=== PATIENT | female | born 1935 | race African-American/Black ===

== ENCOUNTER 2018-09-20 16:30 | Emergency (ER) | payer OTHER ==
[2018-09-20 17:20] LABS: Protime INR 1.02
[2018-09-20 17:36] LABS: ALT/SGPT 34 U/L (12-78); AST/SGOT 37 U/L (15-37); Albumin 3.8 g/dL (3.4-5.0); Alkaline Phosphatase 77 U/L (45-117); BUN Blood Urea Nitrogen 10 mg/dL (7-18); Bicarbonate 30 mmol/L (21-32); Bilirubin Direct 0.3 mg/dL (0-0.2); Bilirubin Total 0.9 mg/dL (0.2-1.0); Glucose Level 98 mg/dL (74-106); Magnesium 1.8 mg/dL (1.8-2.4); NT PRO-BNP 334 pg/mL (<450); Potassium 3.4 mmol/L (3.5-5.1); Protein, Total 7.3 g/dL (6.4-8.2); Sodium Level 135 mmol/L (136-145); Troponin (Emerg Dept Use Only) < 0.02 ng/mL (0.0-0.045)
[2018-09-20 17:37] LABS: Absolute Lymphocytes (CBC) 0.6 K/uL (0.7-4.9); Absolute Neutrophil 6.6 K/uL (1.8-8.0); Basophils % 0.4 % (0-1.3); Eosinophils % 0.7 % (0-4.4); Hematocrit 39.2 % (36.0-45.0); Lymphocytes % 7.6 % (15.3-44.8); MPV 8.9 fL (7.6-11.3); Monocytes % 11.9 % (3.3-12.3); RBC Red Blood Cell Count 5.31 M/uL (3.86-4.86)
--- NOTE | 2018-09-20 17:38 | RAD REPORT ---
EXAM DESCRIPTION: CT - Head C Spine Mpr Wo Con - 09/20/2018 5:11 pm CLINICAL HISTORY: Head and neck injury status post fall. Head and neck pain COMPARISON: None. TECHNIQUE: Computed axial tomography of the head and cervical spine was obtained. Sagittal and coronal reconstruction was performed. All CT scans are performed using dose optimization technique as appropriate and may include automated exposure control or mA/KV adjustment according to patient size. FINDINGS: Left parietal scalp swelling without an underlying skull fracture An intracranial bleed is not seen. The ventricles are normal in caliber. Mild to moderate low-density areas within periventricular, deep and subcortical white matter likely secondary to ischemic changes secondary to small vessel disease. An extra-axial fluid collection is not noted.Fluid is present within the right maxillary sinus A cervical fracture is not visualized. No dislocation is noted. IMPRESSION: No acute intracranial abnormality is seen. A cervical fracture is not visualized. If the patient continues to have symptoms to suggest intracra nial /spinal cord pathology then MRI would be recommended Fluid within the right maxillary sinus may be secondary to acute sinusitis
--- NOTE | 2018-09-20 17:40 | RAD REPORT ---
EXAM DESCRIPTION: Eddie Single View09/20/2018 5:29 pm CLINICAL HISTORY: Chest pain COMPARISON: 2017 FINDINGS: The lungs appear clear of acute infiltrate. The heart is normal size IMPRESSION: No acute abnormalities displayed
--- NOTE | 2018-09-20 18:57 | EDPHYS ---
Physician Documentation [facility] Name: Sneha Kidd Age: 83 yrs Sex: Female : 1935 Arrival Date: 09/20/2018 Time: 16:34 Bed 8 Private MD: Jose Ambrose H ED Physician Chepe Gatica HPI: 09/20 18:49 This 83 yrs old Black Female presents to ER via Ambulatory with complaints of Fall kdr Injury, Passed Out Prior To Arrival. 18:49 Details of fall: The patient fell from seated position, bar stool. Onset: The kdr symptoms/episode began/occurred acutely, suddenly, just prior to arrival. Associated injuries: The patient sustained injury to the head, abrasion, contusion, laceration, pain, swelling, tenderness. Severity of symptoms: At their worst the symptoms were mild, in the emergency department the symptoms have improved, mildly. The patient has experienced a previous episode, The patient was sitting on a bar chair when she started to feel ill. The next thing she knows she is on the floor. Her was on the other side of the bar when she fell though he did not see her go down. He responded immediately to her fall. When he was able to get around the bar, she was talking but seemed slightly confused. She otherwise did not have any other s/s. The patient has not recently seen a physician. Historical: - Allergies: 16:52 Sulfa (Sulfonamide Antibiotics); sg 16:52 Clonidine; sg - PMHx: 16:47 Hypertension; Hypothyroidism; sg - PSHx: 16:47 Knee surgery; Cholecystectomy; Hysterectomy; sg - Immunization history: Last tetanus immunization:. - Social history:: Smoking status: Patient/guardian denies using tobacco. - Ebola Screening: : Patient denies travel to an Ebola-affected area in the 21 days before illness onset. ROS: 18:49 Constitutional: Negative for fever, chills, and weight loss, Eyes: Negative for injury, kdr pain, redness, and discharge, ENT: Negative for injury, pain, and discharge, Neck: Negative for injury, pain, and swelling, Cardiovascular: Negative for chest pain, palpitations, and edema, Respiratory: Negative for shortness of breath, cough, wheezing, and pleuritic chest pain, Abdomen/GI: Negative for abdominal pain, nausea, vomiting, diarrhea, and constipation, Back: Negative for injury and pain, : Negative for injury, bleeding, discharge, and swelling, MS/Extremity: Negative for injury and deformity, Skin: Negative for injury, rash, and discoloration, Psych: Negative for depression, anxiety, suicide ideation, homicidal ideation, and hallucinations, Allergy/Immunology: Negative for hives, rash, and allergies, Endocrine: Negative for neck swelling, polydipsia, polyuria, polyphagia, and marked weight changes, Hematologic/Lymphatic: Negative for swollen nodes, abnormal bleeding, and unusual bruising. 18:49 Neuro: Positive for headache, syncope. Exam: 18:49 Constitutional: This is a well developed, well nourished patient who is awake, alert, kdr and in no acute distress. Eyes: Pupils equal round and reactive to light, extra-ocular motions intact. Lids and lashes normal. Conjunctiva and sclera are non-icteric and not injected. Cornea within normal limits. Periorbital areas with no swelling, redness, or edema. Neck: Trachea midline, no thyromegaly or masses palpated, and no cervical lymphadenopathy. Supple, full range of motion without nuchal rigidity, or vertebral point tenderness. No Meningismus. Chest/axilla: Normal chest wall appearance and motion. Nontender with no deformity. No lesions are appreciated. Cardiovascular: Regular rate and rhythm with a normal S1 and S2. No gallops, murmurs, or rubs. Normal PMI, no JVD. No pulse deficits. Respiratory: Lungs have equal breath sounds bilaterally, clear to auscultation and percussion. No rales, rhonchi or wheezes noted. No increased work of breathing, no retractions or nasal flaring. Abdomen/GI: Soft, non-tender, with normal bowel sounds. No distension or tympany. No guarding or rebound. No evidence of tenderness throughout. Back: No spinal tenderness. No costovertebral tenderness. Full range of motion. Skin: Warm, dry with normal turgor. Normal color with no rashes, no lesions, and no evidence of cellulitis. MS/ Extremity: Pulses equal, no cyanosis. Neurovascular intact. Full, normal range of motion. Neuro: Awake and alert, GCS 15, oriented to person, place, time, and situation. Cranial nerves II-XII grossly intact. Motor strength 5/5 in all extremities. Sensory grossly intact. Cerebellar exam normal. Normal gait. Psych: Awake, alert, with orientation to person, place and time. Behavior, mood, and affect are within normal limits. 18:49 Head/face: Noted is a laceration(s), that is superficial, that is linear, of the left occipital area and right occipital area. Vital Signs: 16:50 BP 161 / 80; Pulse 66; Resp 18; Pulse Ox 100% on R/A; aj1 17:50 BP 177 / 82; Pulse 65; Resp 16; Pulse Ox 100% ; aj1 18:50 BP 190 / 73; Pulse 61; Resp 18; Pulse Ox 100% on R/A; aj1 19:15 BP 175 / 65; Pulse 64; Resp 14; Temp 98.2(O); Pulse Ox 99% on R/A; Pain 0/10; tl1 [place] Coma Score: 16:50 Eye Response: spontaneous(4). Verbal Response: oriented(5). Motor Response: obeys aj1 commands(6). Total: 15. 19:15 Eye Response: spontaneous(4). Verbal Response: oriented(5). Motor Response: obeys tl1 commands(6). Total: 15. Trauma Score (Adult): 16:50 Eye Response: spontaneous(1); Verbal Response: oriented(1); Motor Response: obeys aj1 commands(2); Systolic BP: > 89 mm Hg(4); Respiratory Rate: 10 to 29 per min(4); [place] Score: 15; Trauma Score: 12 17:50 Eye Response: spontaneous(1); Verbal Response: oriented(1); Motor Response: obeys aj1 commands(2); Systolic BP: > 89 mm Hg(4); Respiratory Rate: 10 to 29 per min(4); [place] Score: 15; Trauma Score: 12 18:50 Eye Response: spontaneous(1); Verbal Response: oriented(1); Motor Response: obeys aj1 commands(2); Systolic BP: > 89 mm Hg(4); Respiratory Rate: 10 to 29 per min(4); [place] Score: 15; Trauma Score: 12 19:15 Eye Response: spontaneous(1); Verbal Response: oriented(1); Motor Response: obeys tl1 commands(2); Systolic BP: > 89 mm Hg(4); Respiratory Rate: 10 to 29 per min(4); [place] Score: 15; Trauma Score: 12 MDM: 18:49 Data reviewed: vital signs, nurses notes, lab test result(s), EKG, radiologic studies. kdr Counseling: I had a detailed discussion with the patient and/or guardian regarding: the historical points, exam findings, and any diagnostic results supporting the discharge/admit diagnosis, lab results, radiology results, the need for outpatient follow up. 18:57 Patient medically screened. [facility] 09/20 16:53 Order name: Basic Metabolic Panel; Complete Time: 18:27 [facility] 09/20 16:53 Order name: CBC with Diff; Complete Time: 18:27 [facility] 09/20 16:53 Order name: LFT's; Complete Time: 18:27 [facility] 09/20 16:53 Order name: Magnesium; Complete Time: 18:27 [facility] 09/20 16:53 Order name: NT PRO-BNP; Complete Time: 18:27 [facility] 09/20 16:53 Order name: PT-INR; Complete Time: 18:27 [facility] 09/20 16:53 Order name: XRAY Chest (1 view); Complete Time: 18:27 [facility] 09/20 16:53 Order name: Troponin (emerg Dept Use Only); Complete Time: 18:27 [facility] 09/20 16:53 Order name: EKG; Complete Time: 16:54 [facility] 09/20 16:53 Order name: Cardiac monitoring; Complete Time: 17:53 [facility] 09/20 16:53 Order name: EKG - Nurse/Tech; Complete Time: 17:55 [facility] 09/20 16:53 Order name: IV Saline Lock; Complete Time: 17:01 09/20 17:06 Order name: CT Head C Spine; Complete Time: 18:27 [facility] 09/20 17:06 Order name: US Extremity Venous Unilateral Ltd [facility] 09/20 16:53 Order name: Labs collected and sent; Complete Time: 17:01 [facility] 09/20 16:53 Order name: O2 Per Protocol; Complete Time: 17:53 [facility] 09/20 16:53 Order name: O2 Sat Monitoring; Complete Time: 17:53 1 Administered Medications: No medications were administered Disposition: 09/20/18 18:57 Discharged to Home. Impression: Syncope and collapse, Superficial injury of head, Occupital scalp abrasion. - Condition is Stable. - Discharge Instructions: Cellulitis, Adult, Ogej-jy-Qezc, Abrasion, Ngaz-tx-Lple, Syncope, Syiz-da-Pkyf, Cough, Adult, Kmvg-ke-Ewrn, Head Injury, Adult, Nvjs-ht-Qgwb, Facial or Scalp Contusion, Mpky-vb-Ejrt. - Prescriptions for Mucinex DM 30- 600 mg Oral tablet extended release 12 hr - take 1 tablet by ORAL route every 12 hours as needed; 20 tablet. Keflex 500 mg Oral Capsule - take 1 capsule by ORAL route every 8 hours for 10 days; 30 capsule. Tessalon Perles 100 mg Oral Capsule - take 1 capsule by ORAL route every 8 hours As needed; 15 capsule. - Medication Reconciliation Form, Thank You Letter form. - Follow up: Jose Ambrose DO; When: 2 - 3 days; Reason: If symptoms return, Further diagnostic work-up, Recheck today's complaints, Continuance of care, Re-evaluation by your physician. - Problem is new. - Symptoms have improved. Signatures: Dispatcher [employer] EDMS Dania Mesa RN RN aj1 Zackary Guthrie RN RN Chepe Gatica MD MD [facility] Arianne Gonzalez RN RN tl1 Corrections: (The following items were deleted from the chart) 16:52 16:47 Allergies: No Known Allergies; [facility] 19:41 18:57 09/20/2018 18:57 Discharged to Home. Impression: Syncope and collapse; tl1 Superficial injury of head; Occupital scalp abrasion. Condition is Stable. Forms are Medication Reconciliation Form, Thank You Letter, Antibiotic Education, Prescription Opioid Use. Follow up: Jose Ambrose; When: 2 - 3 days; Reason: If symptoms return, Further diagnostic work-up, Recheck today's complaints, Continuance of care, Re-evaluation by your physician. Problem is new. Symptoms have improved. kdr
--- NOTE | 2018-09-20 18:57 | ER ---
Nurse's Notes [facility] Name: Sneha Kidd Age: 83 yrs Sex: Female : 1935 Arrival Date: 09/20/2018 Time: 16:34 Bed 8 Private MD: Jose Ambrose H Diagnosis: Syncope and collapse;Superficial injury of head;Occupital scalp abrasion Presentation: 09/20 16:45 Presenting complaint: Patient states: I dont really remember what happened I just was sg walking and then I woke up on the floor, I have a gash on my head that was bleeding, and my right knee hurts, it was hurting before i fell but it hurts worse now after the fall. Care prior to arrival: None. Mechanism of Injury: Fall from standing position. Trauma event details: Injury occurred in the [facility], Injury occurred: at home. Injury occurred: September 20, 2018. 16:45 Acuity: KEELY 3 sg 16:45 Method Of Arrival: Ambulatory sg 18:32 Transition of care: patient was not received from another setting of care. Onset of aj1 symptoms was September 20, 2018. Risk Assessment: Do you want to hurt yourself or someone else? Patient reports no desire to harm self or others. 19:01 Initial Sepsis Screen: Does the patient meet any 2 criteria? No. Patient's initial aj1 sepsis screen is negative. Does the patient have a suspected source of infection? No. Patient's initial sepsis screen is negative. Triage Assessment: 16:48 General: Appears in no apparent distress. comfortable, well groomed, well developed, sg well nourished, Behavior is calm, cooperative, appropriate for age. Pain: Complains of pain in right parietal area and right knee Quality of pain is described as tender, throbbing. Neuro: Level of Consciousness is awake, alert, obeys commands, Oriented to person, place, time, situation. Derm: Skin is pink, warm \T\ dry. Musculoskeletal: Circulation, motion, and sensation intact. Range of motion: intact in all extremities, Swelling present in right parietal area. Injury Description: Head injury sustained to right parietal area bleeding, was sustained 30-60 minutes ago. Laceration sustained to right parietal area. Trauma Activation: Alert Physician: ED Physician; Name: ; Notified At: ; Arrived At: Physician: General Surgeon; Name: ; Notified At: ; Arrived At: Physician: Radiology; Name: ; Notified At: ; Arrived At: Physician: Respiratory; Name: ; Notified At: ; Arrived At: Physician: Lab; Name: ; Notified At: ; Arrived At: Historical: - Allergies: 16:52 Sulfa (Sulfonamide Antibiotics); sg 16:52 Clonidine; sg - PMHx: 16:47 Hypertension; Hypothyroidism; sg - PSHx: 16:47 Knee surgery; Cholecystectomy; Hysterectomy; sg - Immunization history: Last tetanus immunization:. - Social history:: Smoking status: Patient/guardian denies using tobacco. - Ebola Screening: : Patient denies travel to an Ebola-affected area in the 21 days before illness onset. Screenin:50 Abuse screen: Denies threats or abuse. Denies injuries from another. Tuberculosis aj1 screening: No symptoms or risk factors identified. 19:03 Nutritional screening: No deficits noted. aj1 19:35 Fall Risk Fall in past 12 months (25 points). IV access (20 points). tl1 Primary Survey: 16:50 NO uncontrolled hemorrhage observed. A: The patient is alert. Airway: patent. aj1 Breathing/Chest: Respiratory pattern: regular, Respiratory effort: spontaneous, unlabored, Chest inspection: symmetrical rise and fall of the chest. Circulation: Skin color: pink. Disability Alert. Exposure/Environment: There is no evidence of uncontrolled external bleeding. 17:50 Reassessment Airway Airway Patent Breathing/Chest Respiratory pattern Regular aj1 Respiratory effort Spontaneous Unlabored Circulation Color [place] Disability Alert. Secondary Survey: 16:50 HEENT: Head Other laceration noted to the back of head, bleeding lightly. aj1 Gastrointestinal: Abdomen is soft, Patient reports Nausea. : No deficits noted. No signs and/or symptoms were reported regarding the genitourinary system. Musculoskeletal: No deficits noted. No signs and/or symptoms reported regarding the musculoskeletal system. Assessment: 16:50 General: Appears in no apparent distress. comfortable, Behavior is calm, cooperative, aj1 appropriate for age. Pain: Complains of pain in back of head Pain does not radiate. Pain currently is 5 out of 10 on a pain scale. Quality of pain is described as aching. Neuro: Level of Consciousness is awake, alert, obeys commands, Oriented to person, place, time, situation, Moves all extremities. Full function Speech is normal, Facial symmetry appears normal, Reports a syncopal episode Denies weakness blurred vision dizziness. EENT: No signs and/or symptoms were reported regarding the EENT system. Cardiovascular: Denies chest pain, lightheadedness, palpitations, shortness of breath, Heart tones S1 S2 present Patient's skin is warm and dry. Rhythm is regular. Respiratory: Airway is patent Respiratory effort is even, unlabored, Respiratory pattern is regular, symmetrical, Breath sounds are clear bilaterally. GI: Reports nausea, Patient currently denies diarrhea, vomiting. : No signs and/or symptoms were reported regarding the genitourinary system. Derm: No signs and/or symptoms reported regarding the dermatologic system. Skin is normal. Musculoskeletal: No signs and/or symptoms reported regarding the musculoskeletal system. Circulation, motion, and sensation intact. 17:50 Reassessment: Patient appears in no apparent distress at this time. No changes from aj1 previously documented assessment. Patient and/or family updated on plan of care and expected duration. Pain level reassessed. Patient is alert, oriented x 3, equal unlabored respirations, skin warm/dry/pink. 18:33 Reassessment: Patient appears in no apparent distress at this time. No changes from aj1 previously documented assessment. Patient and/or family updated on plan of care and expected duration. Pain level reassessed. Patient is alert, oriented x 3, equal unlabored respirations, skin warm/dry/pink. Vital Signs: 16:50 BP 161 / 80; Pulse 66; Resp 18; Pulse Ox 100% on R/A; aj1 17:50 BP 177 / 82; Pulse 65; Resp 16; Pulse Ox 100% ; aj1 18:50 BP 190 / 73; Pulse 61; Resp 18; Pulse Ox 100% on R/A; aj1 19:15 BP 175 / 65; Pulse 64; Resp 14; Temp 98.2(O); Pulse Ox 99% on R/A; Pain 0/10; tl1 [place] Coma Score: 16:50 Eye Response: spontaneous(4). Verbal Response: oriented(5). Motor Response: obeys aj1 commands(6). Total: 15. 19:15 Eye Response: spontaneous(4). Verbal Response: oriented(5). Motor Response: obeys tl1 commands(6). Total: 15. Trauma Score (Adult): 16:50 Eye Response: spontaneous(1); Verbal Response: oriented(1); Motor Response: obeys aj1 commands(2); Systolic BP: > 89 mm Hg(4); Respiratory Rate: 10 to 29 per min(4); [place] Score: 15; Trauma Score: 12 17:50 Eye Response: spontaneous(1); Verbal Response: oriented(1); Motor Response: obeys aj1 commands(2); Systolic BP: > 89 mm Hg(4); Respiratory Rate: 10 to 29 per min(4); [place] Score: 15; Trauma Score: 12 18:50 Eye Response: spontaneous(1); Verbal Response: oriented(1); Motor Response: obeys aj1 commands(2); Systolic BP: > 89 mm Hg(4); Respiratory Rate: 10 to 29 per min(4); [place] Score: 15; Trauma Score: 12 19:15 Eye Response: spontaneous(1); Verbal Response: oriented(1); Motor Response: obeys tl1 commands(2); Systolic BP: > 89 mm Hg(4); Respiratory Rate: 10 to 29 per min(4); [place] Score: 15; Trauma Score: 12 ED Course: 16:34 Patient arrived in ED. mr 16:34 Jose Ambrose DO is Private Physician. mr 16:47 Triage completed. sg 16:48 Arm band placed on. sg 16:50 Patient has correct armband on for positive identification. aj1 16:50 Patient maintains SpO2 saturation greater than 95% on room air. aj1 16:52 Dania Mesa, ALEX is Primary Nurse. aj1 16:54 Chepe Gatica MD is Attending Physician. kdr 17:00 Thermoregulation: warm blanket given to patient. aj1 17:02 Inserted saline lock: 20 gauge in right antecubital area, using aseptic technique. kj1 17:02 Initial lab(s) drawn, by me, sent to lab. kj1 17:[address] via stretcher. nj 17:08 CT completed. Patient tolerated procedure well. Patient moved back from CT. nj 17:11 CT Head C Spine In Process Unspecified. EDMS 17:27 XRAY Chest (1 view) In Process Unspecified. EDMS 18:45 Wound care: to laceration located on back of head was cleaned with Hibiclens, Patient aj1 tolerated well. 18:47 US Extremity Venous Unilateral Ltd In Process Unspecified. EDMS 18:48 Ultrasound completed. Patient tolerated well. Notified ED Physician bhargavi. sg3 18:56 Halie StephanieHarisHarry, DO is Referral Physician. kdr 19:02 No provider procedures requiring assistance completed. aj1 19:33 IV discontinued, intact, bleeding controlled, No redness/swelling at site. Pressure tl1 dressing applied. 19:34 Wound care: was dressed with Neosporin. tl1 Administered Medications: No medications were administered Intake: 19:37 PO: 0ml; IV: 0ml; Total: 0ml. tl1 Outcome: 18:57 Discharge ordered by . kdr 19:34 Discharged to home via wheelchair, with family. tl1 19:34 Condition: good 19:34 Discharge instructions given to patient, family, Instructed on discharge instructions, follow up and referral plans. medication usage, Demonstrated understanding of instructions, follow-up care, medications, wound care, Prescriptions given X 3. 19:37 Patient's length of stay in the Emergency Department was greater than 2 hours. test tl1 resultsPatient's length of stay extended due to 19:41 Patient left the ED. tl1 Signatures: Dispatcher [employer] EDMS Dania Mesa RN RN aj1 Zackary Guthrie RN RN sg Chepe Gatica MD MD kdr Cole, Sneha GonzalezArianne RN RN tl1 Bo Bernabe Sarah sg3 Bhavana Payan kj1 Corrections: (The following items were deleted from the chart) 16:52 16:47 Allergies: No Known Allergies; sg sg 18:33 18:24 General: Appears aj1 aj1
--- NOTE | 2018-09-20 19:11 | RAD REPORT ---
EXAM DESCRIPTION: USExtkaiser Venous Uni Ltd09/20/2018 6:47 pm CLINICAL HISTORY: Right leg swelling. COMPARISON: None. FINDINGS: Right common femoral, superficial femoral, popliteal and right posterior tibial veins are compressible and demonstrate augmentation. Doppler demonstrates good flow. IMPRESSION: No evidence of deep venous thrombosis involving the right lower extremity.
--- NOTE | 2018-09-21 09:45 | EKG ---
Test Date: 2018-09-20 Test Time: 16:45:35 Steamf[employer] Supervisor: DANIELLE MEASUREMENT RESULTS: Intervals: Rate: 70 MA: 158 QRSD: 80 QT: 396 QTc: 427 Sims: P: 21 MA: 158 QRS: 24 T: 31 INTERPRETIVE STATEMENTS: Normal sinus rhythm Normal ECG Compared to ECG 10/06/2005 14:25:38 Sinus bradycardia no longer present Electronically Signed On 09-21-18 09:43:03 CDT by Yvon Vieira
== END 2018-09-20 19:41 | disposition home or self-care (01) ==
LOC: ER 16:30
DX: S00.01XA Abrasion of scalp, initial encounter (principal); S00.90XA Unspecified superficial injury of unspecified part of head, initial encounter; W19.XXXA Unspecified fall, initial encounter; Y93.9 Activity, unspecified; Y92.89 Other specified places as the place of occurrence of the external cause; Z88.2 Allergy status to sulfonamides; Z88.8 Allergy status to other drugs, medicaments and biological substances; I10 Essential (primary) hypertension
CPT/HCPCS: 36415; 70450; 71045; 72125; 80048; 80076; 83735; 83880; 84484; 85025; 85610; 93005; 93971; 99285

== ENCOUNTER 2020-04-26 09:35 | Day surgery (SDC) | payer OTHER ==
[2020-04-21 16:55] LABS: Absolute Lymphocytes (CBC) 1.2 K/uL (0.7-4.9); Basophils % 0.5 % (0-1.3); Hematocrit 35.1 % (36.0-45.0); Lymphocytes % 21.2 % (15.3-44.8); MPV 8.8 fL (7.6-11.3)
[2020-04-21 17:06] LABS: Potassium 3.6 mmol/L (3.5-5.1)
--- NOTE | 2020-04-21 17:15 | RAD REPORT ---
EXAM DESCRIPTION: RAD - Chest Pa And Lat (2 Views) - 04/21/2020 4:59 pm CLINICAL HISTORY: PRE OP, patient pending umbilical hernia repair COMPARISON: AP chest September 2018 TECHNIQUE: Frontal and lateral views of the chest were obtained. FINDINGS: The lungs are clear. Interstitial pattern matches comparison. Heart size is normal and ce ntral vasculature is within normal limits. No pleural effusion or pneumothorax seen. No acute bony finding noted. No aortic abnormality. Small to moderate size hiatal hernia is present similar to co mparison. IMPRESSION: No acute cardiopulmonary process. Chest findings are similar to the comparison.
[2020-04-26] MEDS ORDERED: Ringers Lactate 1,000 ML IV ONE (10:19)
[2020-04-26] MEDS ORDERED: CEFAZOLIN/SWI 1gm 1 GM/10 ML SYR ONE (10:20)
[2020-04-26] MEDS ORDERED: MIDAZOLAM HCL 2 MG/2 ML INJ ONE (11:01)
[2020-04-26] MEDS ORDERED: dexAMETHasone 10 MG/ML VIAL ONE (11:01)
[2020-04-26] MEDS ORDERED: propofoL 200 MG/20 ML VIAL IV ONE (11:01)
[2020-04-26] MEDS ORDERED: FENTANYL CITR 100 MCG/2 ML ONE (11:01)
[2020-04-26] MEDS ORDERED: LIDOCAINE 2% MPF 5 ML VIAL ONE (11:02)
[2020-04-26] MEDS ORDERED: ROCURONIUM 50 MG/5 ML VIAL IV ONE (11:03)
[2020-04-26] MEDS ORDERED: GLYCOPYRROLATE 0.2 MG/ML SYR ONE ×2 (11:29→12:00)
[2020-04-26] MEDS ORDERED: ONDANSETRON 4 MG/2 ML VIAL ONE ×2 (11:40→12:45)
[2020-04-26] MEDS ORDERED: NEOSTIGMINE 1 MG/ML -5 ML ONE (12:00)
[2020-04-26] MEDS ORDERED: KETOROLAC 30 MG/ML INJ ONE (12:00)
--- NOTE | 2020-04-26 12:31 | OP ---
Date of Procedure: 04/26/2020 Surgeon: Ramon Morley MD Ad Terminal Makeup Operator: LORRAINE Silva. Preoperative Diagnosis: Incarcerated umbilical hernia. Postoperative Diagnosis: Incarcerated umbilical hernia with adhesions. Procedure Performed: Laparoscopic repair of incarcerated umbilical hernia and lysis of adhesions. Estimated Blood Loss: Minimal. Specimen: Hernia sac. Findings: As above. Anesthesia: General. Complications: None. Disposition: The patient tolerated the procedure in stable condition, taken to Recovery in good gene ral condition. Procedure In Detail: The patient was brought to the OR and placed in supine position. General anest hesia begun. The patient was prepped and draped in the usual sterile fashion. Marcaine 0.5% was inf iltrated locally. A 15-blade was used to make a 1 cm left upper quadrant incision. Subcutaneous tis sues were divided. Fascia was identified and divided. A #1 Vicryl stay suture was placed. Peritone al cavity was entered with sharp and blunt dissection. A 12 mm trocar was placed into the peritoneal cavity under direct vision. Pneumoperitoneum was established and then a 5 mm trocar was placed in t he left lower quadrant. Laparoscopy revealed incarcerated omentum into hernias and just above the um bilicus. Then, sharp and blunt dissection utilized with LigaSure. There were extensive adhesions in the lower midline, which had to be taken down for create a room to place the mesh and this was done all the way down to the pelvis. There was no active bleeding or bowel injury appreciated in approxim ately 10-15 minutes. We utilized to lyse all these adhesions. Then, the omentum and the hernia sac were reduced to the peritoneal cavity. Then, a 3 cm incision was made over the hernia and subcutaneo us tissue was divided. Hernia sac was identified, excised, and sent to the pathology as specimen. A 3 cm defect remained and this was closed with a running #1 Vicryl suture because the patient's fasci a was very thin and subsequently pneumoperitoneum was reestablished and then the oval small Bard and Marlex mesh component balloon device was deployed in the usual standard fashion and secured with Abso rbaTack stapler to complete coverage of the hernia defect site. No evidence of bowel injury or bleed ing noted. Subsequently, all trocars were removed under direct vision. Stay sutures were tied to ea ch other to reapproximate the fascial defect. Subcutaneous wounds were irrigated. Bleeding was cont rolled with cautery. A 0 chromic was used for subcutaneous tissue and close the skin. Sterile dress ing was applied. The patient was awakened and taken to Recovery in good general condition. Discharge Note: The patient will go to Day Surgery and home when stable. Disposition: Home. Condition: Stable. Discharge Instructions: Resume home medications and diet. Activity as tolerated. No heavy lifting. Remove outer dressing in 2 days. Shower. Keep Steri-Strips on at all times. Abdominal binder as ordered. Incentive spirometry as ordered. Tylenol No.3 one tablet p.o. q.4 p.r.n. pain. Follow up in my office in 2 weeks. Call for appointment. EUGENE/MARIE Voice ID: [id number] Report ID: [id number]
[2020-04-26] MEDS: HYDROMORPHONE HCL 1 MG/ML INJ ONE ×2 (12:35→12:40)
[2020-04-26] MEDS ORDERED: HYDROCODONE/APAP 7.5/325 MG TAB PO ONE (13:17)
[2020-04-26] MEDS ORDERED: HYDROCODONE/APAP 7.5/325 MG TAB ONE (13:29)
[2020-04-26 14:08] VITALS: BP 161/75; TEMP 97.4; O2SAT 96
== END 2020-04-26 14:00 | disposition home health service (06) ==
LOC: OR 09:35
PROVIDERS: ATTEND Surgery
PROC: 0DNW4ZZ Release Peritoneum, Percutaneous Endoscopic Approach (ICD-10-PCS; 2020-04-26)
PROC: 0WUF4JZ Supplement Abdominal Wall with Synthetic Substitute, Percutaneous Endoscopic Approach (ICD-10-PCS; principal; 2020-04-26 11:45)
DX: K42.0 Umbilical hernia with obstruction, without gangrene (principal); K66.0 Peritoneal adhesions (postprocedural) (postinfection); I10 Essential (primary) hypertension; E07.9 Disorder of thyroid, unspecified; Z88.2 Allergy status to sulfonamides; Z20.828 Contact with and (suspected) exposure to other viral communicable diseases
CPT/HCPCS: 85025; 80048; 36415; 88302; 71046; 49653; 49329; U0002; J2704; J3010; J1100; J1170; J2710; J0690; J7120; J2405 ×2; J2250

== ENCOUNTER 2023-08-15 14:33 | Day surgery (SDC) | payer OTHER ==
[2023-08-15] MEDS ORDERED: CEFEPIME 1 GM/VIAL ONE (14:37)
[2023-08-15] MEDS ORDERED: NA CHLORIDE 0.9% 100 ML ONE (14:38)
[2023-08-15 15:31] VITALS: BP 177/64; TEMP 97.5; O2SAT 100; BMI 25.8
== END 2023-08-15 15:19 | disposition home or self-care (01) ==
LOC: DS 14:33
PROVIDERS: ATTEND Internal Medicine
DX: I83.029 Varicose veins of left lower extremity with ulcer of unspecified site (principal); E78.5 Hyperlipidemia, unspecified; I10 Essential (primary) hypertension; I89.0 Lymphedema, not elsewhere classified
CPT/HCPCS: 96365; J0692